=== PATIENT | female | born 1985 | race Two or more races ===

== ENCOUNTER 2020-05-11 18:22 | Emergency (ER) | payer OTHER ==
[~2020-05-11] VITALS: Ht 160 cm; Wt 88.5 kg
[2020-05-11 18:25] VITALS: BP 135/75
[2020-05-11] MEDS ORDERED: IBUPROFEN 400 MG TABLET PO ONE (19:00)
[2020-05-11] MEDS ORDERED: IBUPROFEN 400 MG TABLET ONE (19:07)
--- NOTE | 2020-05-11 20:19 | NUR ---
ambulatory with a steady gait.
--- NOTE | 2020-05-11 20:19 | NUR ---
Patient discharged to home in stable condition. Written and verbal after care instructions given. Patient verbalizes understanding of instruction.
--- NOTE | 2020-05-11 20:19 | NUR ---
PATIENT PROVIDED BASEBALL SPLINT ON LEFT 5TH DIGIT
--- NOTE | 2020-05-11 20:19 | NUR ---
CD OF XRAY PROVIDED TO THE PATIENT.
== END 2020-05-11 20:22 | disposition home or self-care (01) ==
LOC: ER 18:25
DX: S62.617A Displaced fracture of proximal phalanx of left little finger, initial encounter for closed fracture (principal); V49.49XA Driver injured in collision with other motor vehicles in traffic accident, initial encounter; Y93.89 Activity, other specified; Y92.413 State road as the place of occurrence of the external cause; Y99.8 Other external cause status
CPT/HCPCS: 73110; 73130-TC; 73140-TC